=== PATIENT | female | born 1985 | race Caucasian/White ===

== ENCOUNTER 2020-09-23 21:37 | Inpatient (IN) ==
[2020-09-23 22:57] LABS: Bilirubin,Urine Negative (Negative); Blood,Urine Large (Negative); Clarity,Urine Turbid (Clear); Color,Urine Yellow (Yellow); Glucose,Urine (UA) Normal (Normal); Ketones,Urine Negative (Negative); Leukocyte Esterase,Urine Trace (Negative); Mucus,Urine Few per lpf (None-Few); Nitrite,Urine Negative (Negative); PH,Urine 6.5 pH Units (5.0-8.0); Protein,Urine 50 mg/dL (Neg-Trace); RBC,Urine TNTC per hpf (0-3); Specific Gravity,Urine > 1.030 (1.010-1.025); Squamous Epithelial Cell,Urine Moderate per hpf (None-Few)
[2020-09-23 23:06] LABS: Amphetamine Screen,Urine Negative ng/mL (Cutoff=1000); Barbiturate Screen,Urine Negative ng/mL (Cutoff=200); Benzodiazepines Screen,Urine Negative ng/mL (Cutoff=200); Cannabinoid Screen,Urine Positive ng/mL (Cutoff = 50); Cocaine Screen,Urine Negative ng/mL (Cutoff= 300); Opiate Screen,Urine Negative ng/mL (Cutoff=300); Phencyclidine Screen,Urine Negative ng/mL (Cutoff=25)
[2020-09-23 23:48] LABS: Basophils # 0.1 K/mcL (0.0-0.2); Basophils % 0.5 %; Eosinophils # 0.2 K/mcL (0.0-0.6); Eosinophils % 1.4 %; Hematocrit 38.5 % (35.3-44.9); Hemoglobin 13.2 g/dL (11.5-15.4); Immature Granulocytes % 0.4 % (0-4); Lymphocytes # 4.2 K/mcL (0.6-4.6); Lymphocytes % 30.1 %; Mean Corpuscular HGB Conc 34.3 g/dL (31.6-35.5); Mean Corpuscular Hemoglobin 31.5 pg (28.0-33.3); Mean Corpuscular Volume 91.9 fL (83.0-100.0); Mean Platelet Volume 12.2 fL (9.4-12.4); Monocytes # 1.2 K/mcL (0.0-1.3); Monocytes % 8.9 %; Neutrophils # 8.2 K/mcL (1.6-8.9); Platelet Count 202 K/mcL (140-400); Red Blood Count 4.19 M/mcL (3.82-4.97); Red Cell Distribution Width 11.5 % (11.5-14.5); Segmented Neutrophils % 58.7 %; White Blood Count 13.9 K/mcL (4.3-11.1)
[2020-09-24] LABS: Acetaminophen < 10 mcg/mL (10-20); Alanine Aminotransferase 29 Units/L (7-52); Albumin 4.2 g/dL (3.5-5.7); Albumin/Globulin Ratio 1.6 (1.1-2.2); Alkaline Phosphatase 52 Units/L (34-104); Aspartate Amino Transferase 43 Units/L (13-39); BUN/Creatinine Ratio 10 (6-26); Bilirubin,Direct 0.2 mg/dL (0.0-0.2); Bilirubin,Indirect 1.1 mg/dL (0.0-1.0); Bilirubin,Total 1.3 mg/dL (0.3-1.0); Blood Urea Nitrogen 8 mg/dL (6-20); Calcium 8.8 mg/dL (8.6-10.3); Carbon Dioxide 23 mEq/L (23-29); Chloride 107 mEq/L (98-107); Ethanol < 10 mg/dL (Less than 10); Globulin 2.7 g/dL (2.4-3.5); Glucose 90 mg/dL (70-105); Osmolality,Calculated 284 (280-300); Potassium 3.3 mEq/L (3.5-5.1); Salicylate < 2.5 mg/dL (15.0-30.0); Sodium 138 mEq/L (136-145); Total Protein 6.9 g/dL (6.4-8.9); eGFR For African Americans > 60 (> 60); eGFR For Non-African Americans > 60 (> 60)
[2020-09-24] MEDS ORDERED: Potassium Chloride Elixir 20 MEQ/15 ML UDC PO ONE (00:07)
[2020-09-24 00:09] LABS: Platelet Estimate Normal (Normal); Reactive Lymphocytes Present (Not Present)
[2020-09-24] MEDS ORDERED: hydrOXYzine pamoate 25 MG CAPSULE PO ONE (00:34)
[2020-09-24] MEDS ORDERED: *HR* LORazepam 1 MG TABLET PO ONE (02:31)
[2020-09-24] MEDS ORDERED: *HR* LORazepam 2 MG/ML VIAL IM PRN (14:20)
[2020-09-24] MEDS ORDERED: Haloperidol Lactate 5 MG/ML VIAL IM PRN (14:20)
[2020-09-24 15:36] LABS: Influenza A PCR Negative (Negative); Influenza B PCR Negative (Negative); Resp. Syncytial Virus PCR Negative (Negative)
[2020-09-24] MEDS: Ibuprofen 400 MG TABLET PO PRN ×2 (15:38→20:40)
[2020-09-24 15:53] LABS: SARS-CoV-2 by PCR (In House) Negative (Negative)
[2020-09-24] MEDS: hydrOXYzine pamoate 25 MG CAPSULE PO PRN (20:40)
[2020-09-24] MEDS: traZODone 50 MG TABLET PO PRN (20:40)
[2020-09-24] MEDS ORDERED: ARIPiprazole 5 MG TABLET PO SCH (21:00)
[2020-09-24] MEDS ORDERED: Nicotine 2 MG GUM BC ONE (21:27)
[2020-09-25] MEDS: hydrOXYzine pamoate 25 MG CAPSULE PO PRN ×4 (02:39→20:51)
[2020-09-25] MEDS: Acetaminophen 325 MG TABLET PO PRN (02:45)
[2020-09-25] MEDS: *HR* LORazepam 1 MG TABLET PO PRN ×2 (03:51→21:15)
[2020-09-25] MEDS: haloperidoL 5 MG TABLET PO PRN ×2 (03:51→21:15)
[2020-09-25] MEDS: Ibuprofen 400 MG TABLET PO PRN ×2 (08:42→20:51)
[2020-09-25] MEDS: Nicotine 21 MG PATCH.TD24 TD SCH (08:43)
[2020-09-25] MEDS ORDERED: Mag Hydrox/Al Hydrox/Simeth 30 ML UDC PO PRN (11:04)
[2020-09-25] MEDS: Nicotine 2 MG GUM BC SCH ×4 (14:45→20:21)
[2020-09-25] MEDS: traZODone 50 MG TABLET PO PRN ×2 (20:19→20:51)
[2020-09-25] MEDS ORDERED: ARIPiprazole 5 MG TABLET PO SCH (21:00)
[2020-09-26] MEDS: Nicotine 2 MG GUM BC SCH ×5 (00:25→14:34)
[2020-09-26] MEDS: Nicotine 21 MG PATCH.TD24 TD SCH (08:37)
[2020-09-26] MEDS: MOM Conc 10 ML UD.LIQ PO PRN (09:44)
[2020-09-26 11:16] LABS: Basophils # 0.1 K/mcL (0.0-0.2); Basophils % 0.5 %; Eosinophils # 0.2 K/mcL (0.0-0.6); Eosinophils % 1.6 %; Hematocrit 40.4 % (35.3-44.9); Hemoglobin 13.4 g/dL (11.5-15.4); Immature Granulocytes % 0.5 % (0-4); Lymphocytes # 1.7 K/mcL (0.6-4.6); Lymphocytes % 15.9 %; Mean Corpuscular HGB Conc 33.2 g/dL (31.6-35.5); Mean Corpuscular Hemoglobin 31.4 pg (28.0-33.3); Mean Corpuscular Volume 94.6 fL (83.0-100.0); Monocytes # 0.6 K/mcL (0.0-1.3); Monocytes % 5.9 %; Neutrophils # 8.2 K/mcL (1.6-8.9); Platelet Count 197 K/mcL (140-400); Red Blood Count 4.27 M/mcL (3.82-4.97); Red Cell Distribution Width 11.9 % (11.5-14.5); Segmented Neutrophils % 75.6 %; White Blood Count 10.9 K/mcL (4.3-11.1)
[2020-09-26 11:38] LABS: Alanine Aminotransferase 20 Units/L (7-52); Albumin 4.2 g/dL (3.5-5.7); Albumin/Globulin Ratio 1.8 (1.1-2.2); Alkaline Phosphatase 49 Units/L (34-104); Aspartate Amino Transferase 20 Units/L (13-39); BUN/Creatinine Ratio 17 (6-26); Bilirubin,Total 0.6 mg/dL (0.3-1.0); Blood Urea Nitrogen 13 mg/dL (6-20); Calcium 8.9 mg/dL (8.6-10.3); Carbon Dioxide 26 mEq/L (23-29); Chloride 106 mEq/L (98-107); Globulin 2.4 g/dL (2.4-3.5); Glucose 81 mg/dL (70-105); Osmolality,Calculated 285 (280-300); Potassium 4.2 mEq/L (3.5-5.1); Sodium 138 mEq/L (136-145); Total Protein 6.6 g/dL (6.4-8.9); eGFR For African Americans > 60 (> 60); eGFR For Non-African Americans > 60 (> 60)
[2020-09-26 11:50] LABS: Thyroid Stimulating Hormone 0.643 mcIU/mL (0.340-5.600)
[2020-09-26] MEDS: hydrOXYzine pamoate 25 MG CAPSULE PO PRN (15:16)
[2020-09-26] MEDS: Acetaminophen 325 MG TABLET PO PRN (16:01)
[2020-09-26 19:17] LABS: Bilirubin,Urine Negative (Negative); Blood,Urine Negative (Negative); Clarity,Urine Clear (Clear); Color,Urine Yellow (Yellow); Glucose,Urine (UA) Normal (Normal); Ketones,Urine Negative (Negative); Leukocyte Esterase,Urine Negative (Negative); Nitrite,Urine Negative (Negative); Protein,Urine Negative (Neg-Trace); Specific Gravity,Urine 1.006 (1.010-1.025); Urobilinogen,Urine Normal (Normal)
[2020-09-26] MEDS: traZODone 50 MG TABLET PO PRN (21:03)
[2020-09-26] MEDS: ARIPiprazole 10 MG TABLET PO SCH (21:03)
[2020-09-27] MEDS: Nicotine 21 MG PATCH.TD24 TD SCH (10:09)
[2020-09-27] MEDS: hydrOXYzine pamoate 25 MG CAPSULE PO PRN (17:07)
[2020-09-27] MEDS: ARIPiprazole 10 MG TABLET PO SCH (21:24)
[2020-09-28] MEDS: Acetaminophen 325 MG TABLET PO PRN (06:18)
[2020-09-28] MEDS: Nicotine 21 MG PATCH.TD24 TD SCH (10:01)
[2020-09-28] MEDS: ARIPiprazole 5 MG TABLET PO SCH (21:15)
[2020-09-28] MEDS: ARIPiprazole 10 MG TABLET PO SCH (21:16)
[2020-09-28] MEDS: hydrOXYzine pamoate 25 MG CAPSULE PO PRN (21:16)
[2020-09-28] MEDS: traZODone 50 MG TABLET PO PRN (21:16)
[2020-09-29] MEDS: Nicotine 21 MG PATCH.TD24 TD SCH (08:22)
[2020-09-29] MEDS: Acetaminophen 325 MG TABLET PO PRN (18:31)
[2020-09-29] MEDS: traZODone 50 MG TABLET PO PRN (21:04)
[2020-09-29] MEDS: ARIPiprazole 10 MG TABLET PO SCH (21:04)
[2020-09-29] MEDS: hydrOXYzine pamoate 25 MG CAPSULE PO PRN (21:04)
[2020-09-29] MEDS: ARIPiprazole 5 MG TABLET PO SCH (21:04)
[2020-09-30] MEDS: Nicotine 21 MG PATCH.TD24 TD SCH (09:28)
[2020-09-30] MEDS: Acetaminophen 325 MG TABLET PO PRN ×2 (09:41→18:22)
[2020-09-30] MEDS: hydrOXYzine pamoate 25 MG CAPSULE PO PRN (10:12)
[2020-09-30] MEDS: MOM Conc 10 ML UD.LIQ PO PRN (10:12)
[2020-09-30] MEDS: *HR* LORazepam 0.5 MG TABLET PO SCH ×2 (17:06→20:51)
[2020-09-30] MEDS: traZODone 50 MG TABLET PO PRN (20:51)
[2020-09-30] MEDS: ARIPiprazole 5 MG TABLET PO SCH (20:51)
[2020-09-30] MEDS: ARIPiprazole 10 MG TABLET PO SCH (20:51)
[2020-10-01] MEDS: Nicotine 21 MG PATCH.TD24 TD SCH (08:41)
[2020-10-01] MEDS: *HR* LORazepam 0.5 MG TABLET PO SCH ×3 (08:42→20:36)
[2020-10-01] MEDS: Nicotine 14 MG PATCH.TD24 TD SCH (11:18)
[2020-10-01] MEDS: ARIPiprazole 10 MG TABLET PO SCH (20:35)
[2020-10-01] MEDS: ARIPiprazole 5 MG TABLET PO SCH (20:35)
[2020-10-01] MEDS: traZODone 50 MG TABLET PO PRN (20:36)
[2020-10-02] MEDS: Nicotine 14 MG PATCH.TD24 TD SCH (07:58)
[2020-10-02] MEDS: *HR* LORazepam 0.5 MG TABLET PO SCH ×3 (07:58→20:23)
[2020-10-02] MEDS: Ibuprofen 400 MG TABLET PO PRN (11:39)
[2020-10-02] MEDS: hydrOXYzine pamoate 25 MG CAPSULE PO PRN (17:24)
[2020-10-02] MEDS: ARIPiprazole 10 MG TABLET PO SCH (20:22)
[2020-10-02] MEDS: traZODone 50 MG TABLET PO PRN (20:23)
[2020-10-02] MEDS: ARIPiprazole 5 MG TABLET PO SCH (20:23)
[2020-10-02 21:10] VITALS: O2SAT 100
[2020-10-03] MEDS: *HR* LORazepam 0.5 MG TABLET PO SCH ×2 (08:35→14:20)
[2020-10-03] MEDS: Nicotine 2 MG GUM BC PRN ×3 (08:53→15:32)
[2020-10-03 09:44] VITALS: BP 113/76; PULSE 90; TEMP 98.1
[2020-10-03] MEDS: Acetaminophen 325 MG TABLET PO PRN (12:29)
== END 2020-10-03 17:45 | disposition home or self-care (01) | DRG 751 ==
LOC: EMEROOARM 21:37 → 1ANU 09-24 17:21
PROVIDERS: ADMIT Psychiatry & Neurology Psychiatry; ATTEND Psychiatry & Neurology Psychiatry